=== PATIENT | female | born 1980 | race Caucasian/White ===

== ENCOUNTER 2019-04-21 16:25 | Emergency (ER) | payer OTHER ==
[2019-04-21 16:32] VITALS: TEMP 98; BMI 24.1
--- NOTE | 2019-04-21 16:34 | PDOC ---
Rapid Medical Evaluation Time Seen by Provider: 04/21/19 16:31 Medical Evaluation: 04/21/19 16:31 I have performed a brief in-person evaluation of this patient Chief complaint:denies pmhx c/o lower abd pain with dysuria since last night. denies n/v/f/c. Pertinent PE findings: stable, NAD, non-focal I have ordered the following: labs, UA, UCX The patient will proceed to the ED for further evaluation. I have performed a brief in-person evaluation of this patient. Discharge Disposition - Diagnosis Abdominal pain - Referrals - Patient Instructions - Post Discharge Activity
[2019-04-21 17:25] LABS: BASO % 0.5 % (0-2.0); HEMATOCRIT 43.2 % (32.4-45.2); HEMOGLOBIN 14.5 GM/dL (10.7-15.3); LYMPH % 35.8 % (8-40); MCH 31.8 pg (25.7-33.7); MCHC 33.6 g/dl (32.0-36.0); MEAN CELL VOLUME 94.6 fl (80-96); MEAN PLT VOLUME 7.7 fl (7.5-11.1); MONO % 6.1 % (3.8-10.2); NEUT % 56.6 % (42.8-82.8); PLATELET COUNT 294 K/MM3 (134-434); RBC 4.57 M/mm3 (3.60-5.2); RDW 12.3 % (11.6-15.6); WHITE BLOOD COUNT 7.4 K/mm3 (4.0-10.0)
[2019-04-21 17:36] LABS: EPI CELLS 3.8 /HPF (0-5/HPF); HYALINE CASTS 3 /lpf (0-8); URINE APPEARANCE CLEAR; URINE BACTERIA 144.5 /hpf (NEGATIVE); URINE BILIRUBIN NEGATIVE (NEGATIVE); URINE COLOR YELLOW; URINE GLUCOSE (UA) NEGATIVE (NEGATIVE); URINE KETONE NEGATIVE (NEGATIVE); URINE LEUK ESTERASE TRACE (NEGATIVE); URINE NITRITE NEGATIVE (NEGATIVE); URINE PROTEIN NEGATIVE (NEGATIVE); URINE RBC 4 /hpf (0-4); URINE WBC 4 /hpf (0-5)
[2019-04-21] MEDS ORDERED: ACETAMINOPHEN 500 MG TABLET (FP) PO ONE (17:37)
--- NOTE | 2019-04-21 17:41 | PDOC ---
History of Present Illness - General Chief Complaint: Pain Stated Complaint: ABDOMINAL PAIN Time Seen by Provider: 04/21/19 16:31 History Source: Patient Exam Limitations: No Limitations - History of Present Illness Travel History: No Initial Comments: 04/21/19 17:38 HISTORY OF PRESENT ILLNESS: Is a 39-year-old woman with past medical history of left-sided ovarian cyst status post oophrectomy who presents to the emergency department for evaluation of mid suprapubic pain radiating to her back. Patient also endorses having urinary frequency but when she tries to void is only producing scant amount of urine. Patient reports slight burning when she does urinate. Patient denies any vaginal bleeding or vaginal discharge. Last menstrual period was last week. She denies any constipation, diarrhea or bloody stools. No recent travel or sick contacts. PAST MEDICAL HISTORY: See HPI SURGICAL HISTORY: See HPI ALLERGIES: No known drug allergies REVIEW OF SYSTEMS General/Constitutional: Denies fever or chills. Denies weakness, weight change. HEENT: Denies change in vision. Denies ear pain or discharge. Denies sore throat. Cardiovascular: Denies chest pain or shortness of breath. Respiratory: Denies cough, wheezing, or hemoptysis. Gastrointestinal: Denies nausea, vomiting, diarrhea or constipation. Denies rectal bleeding. Genitourinary: See HPI Musculoskeletal: Denies joint or muscle swelling or pain. Denies neck or back pain. Skin and breasts: Denies rash or easy bruising. Neurologic: Denies headache, vertigo, loss of consciousness, or loss of sensation. Psychiatric: Denies depression or anxiety. Endocrine: Denies increased thirst. Denies abnormal weight change. Hematologic/Lymphatic: Denies anemia, easy bleeding, or history of blood clots. Allergic/Immunologic: Denies hives or skin allergy. Denies latex allergy. PHYSICAL EXAM General Appearance: Well-appearing, appropriately dressed. No apparent distress , no intoxication. HEENT: EOMI, PERRLA, normal ENT inspection, normal voice, TMs normal, pharynx normal. No conjunctival pallor. No photophobia, scleral icterus. Neck: Supple. Trachea midline. No tenderness, rigidity, carotid bruit, stridor , lymphadenopathy, or thyromegaly. Respiratory/Chest: Lungs CTAB. No shortness of breath, chest tenderness, respiratory distress, accessory muscle use. No crackles, rales, rhonchi, stridor , wheezing, dullness Cardiovascular: RRR. S1, S2. No JVD, murmur, bradycardia, tachycardia. Vascular Pulses: Dorsalis-Pedis (R): 2+, Dorsalis-Pedis (L): 2+ Gastrointestinal/Abdominal: Normal bowel sounds. Abdomen soft, non-distended. Suprapubic tenderness without guarding or rebound tenderness. No organomegaly, pulsatile mass, hernia, hepatomegaly, splenomegaly. Lymphatic: No adenopathy, tenderness. Musculoskeletal/Extremities: Normal inspection. FROM of all extremities, normal capillary refill. Pelvis Stable. No CVA tenderness. No tenderness to extremities, pedal edema, swelling, erythema or deformity. Integumentary: Appropriate color, dry, warm. No cyanosis, erythema, jaundice or rash Neurologic: lean manufacturing specialist II-XII intact. Fully oriented, alert. Appropriate mood/affect. Motor strength 5/5. No appreciable EOM palsy, facial droop or sensory deficit. Past History - Past Medical History Allergies/Adverse Reactions: Allergies Allergy/AdvReac Type Severity Reaction Status Date / Time No Known Allergies Allergy Verified 04/21/19 16:32 Home Medications: Ambulatory Orders NK [No Known Home Medication] 04/21/19 COPD: No - Psycho Social/Smoking Cessation Hx Smoking History: Never smoked *Physical Exam - Vital Signs Last Vital Signs Temp Pulse Resp BP Pulse Ox 98 F 70 18 165/58 L 98 04/21/19 16:29 04/21/19 16:29 04/21/19 16:29 04/21/19 16:29 04/21/19 16:29 ED Treatment Course - LABORATORY CBC & Chemistry Diagram: 04/21/19 16:54 04/21/19 16:54 - ADDITIONAL ORDERS Additional order review: Laboratory Results 04/21/19 04/21/19 16:59 16:59 Urine Color Yellow Urine Appearance Clear Urine pH 6.0 Ur Specific [place] 1.026 Urine Protein Negative Urine Glucose (UA) Negative Urine Ketones Negative Urine Blood Negative Urine Nitrite Negative Urine Bilirubin Negative Urine Urobilinogen 1.0 Ur Leukocyte Esterase Trace Urine WBC (Auto) 4 Urine RBC (Auto) 4 Urine Casts (Auto) 3 U Epithel Cells (Auto) 3.8 Urine Bacteria (Auto) 144.5 Urine HCG, Qual Negative 04/21/19 16:54 RBC 4.57 MCV 94.6 MCHC 33.6 RDW 12.3 MPV 7.7 Neutrophils % 56.6 Lymphocytes % 35.8 Monocytes % 6.1 Eosinophils % 1.0 Basophils % 0.5 Medical Decision Making - Medical Decision Making 04/21/19 17:40 A/P: 39-year-old woman with suprapubic pain, urinary frequency and dysuria for 2 days Mild suprapubic tenderness present without guarding No CVA tenderness noted Physical exam is consistent with a cystitis. Labs per [facility] Low threshold for transvaginal ultrasound if urine shows no signs of infection or stone. 04/21/19 19:33 CBC is unremarkable. Chemistries are unremarkable. Urinalysis is unremarkable. Urine testing is negative Transvaginal ultrasound is read by Dr. Thomas: Cara partially obscured due to overlapping bowel gas. No obvious enlargement or cyst is seen. Also allowing for overlapping bowel gas there is no obvious Doppler evidence of ovarian torsion. No free intra-peritoneal fluid is noted. The uterus appears unremarkable in overall size measuring approximately 9 x 5 x 4 cm. 0.8 cm soft tissue focus is seen within the uterine body posteriorly most suggestive of a leiomyoma on a statistical basis Endometrial thickness appears unremarkable measuring 0.2 cm. As patient does not have evidence of urinary tract infection or kidney stone this is likely due to leiomyoma. We will discharge the patient home to follow- up with her PIGSKIN TRIMMER for continued evaluation. I discussed the physical exam findings, ancillary test results and final diagnoses with the patient. I answered all of the patient's questions. The patient was satisfied with the care received and felt comfortable with the discharge plan and treatment plan. The patient will call their primary care physician within 24 hours to arrange follow-up and will return to the Emergency Department with any new, persistent or worsening symptoms. Discharge - Discharge Information Problems reviewed: Yes Clinical Impression/Diagnosis: Leiomyoma Condition: Stable Disposition: HOME - Admission No - Follow up/Referral Referrals: Derick Bridges MD [Staff Physician] - - Patient Discharge Instructions Additional Instructions: Eat a well-balanced diet. Take Tylenol or Motrin as needed for pain. Follow mineral mixer's instructions for appropriate dosage. You have been given a referral for naphthalene still operator. Call to schedule an appointment for reevaluation and continued treatment. Return to the emergency department for any new or worsening symptoms. Thank you very much for choosing us to provide your emergent health care needs. Coma adonay dieta arianna balanceada. [place] Tylenol o Motrin segn sea necesario para el dolor. Siga las instrucciones del fabricante para la dosis adecuada. Le armstrong dado adonay referencia para un gineclogo. Llame para programar adonay jose para reevaluacin y tratamiento continuo. Regrese al departamento de emergencias por cualquier sntoma nuevo o que empeore. Muchas reba por elegirnos para satisfacer celestino necesidades de atencin mdica de emergencia. - Post Discharge Activity Work/Back to School Note: Back to Work
[2019-04-21 17:52] LABS: ALBUMIN 3.7 g/dl (3.4-5.0); BILIRUBIN,TOTAL 0.5 mg/dL (0.2-1); BLOOD UREA NITROGEN 14.4 mg/dL (7-18); CALCIUM 8.9 mg/dL (8.5-10.1); CREATININE 0.8 mg/dL (0.55-1.3); POTASSIUM 3.6 mmol/L (3.5-5.1); TOT PROT 7.4 g/dl (6.4-8.2)
[2019-04-21] MEDS ORDERED: ACETAMINOPHEN 325 MG TABLET (FP) ONE (17:55)
[2019-04-21] MEDS ORDERED: KETOROLAC TROMETHAMINE 30 MG/1 ML VIAL IM ONE (19:42)
[2019-04-21] MEDS ORDERED: KETOROLAC TROMETHAMINE 30 MG/1 ML VIAL ONE (19:56)
[2019-04-21 20:53] VITALS: BP 147/56; PULSE 68
== END 2019-04-21 20:17 | disposition home or self-care (01) ==
LOC: JER 16:25
PROC: 3E0233Z Introduction of Anti-inflammatory into Muscle, Percutaneous Approach (ICD-10-PCS; principal; 2019-04-21)
DX: D25.9 Leiomyoma of uterus, unspecified (principal); Z90.721 Acquired absence of ovaries, unilateral
CPT/HCPCS: 36415; 76830-TC; 80053; 81003; 84703; 85025; 87086; 99283-25